=== PATIENT | female | born 1980 | race African-American/Black ===

== ENCOUNTER 2017-08-09 22:21 | Emergency (ER) | payer SELFPAY ==
[2017-08-09] MEDS ORDERED: Ketorolac Tromethamine 30 MG/ML VIAL ONE (23:14)
--- NOTE | 2017-08-09 23:29 | RAD ---
THREE VIEW LEFT WRIST 08/09/17 INDICATION: Left wrist pain and injury related to fall. FINDINGS: No fracture or dislocation identified. Carpal alignment is maintained. IMPRESSION: No acute osseous abnormality of the left wrist. POS: [facility]
--- NOTE | 2017-08-10 07:33 | RAD ---
TWO VIEWS LEFT FOREARM 08/09/17 HISTORY: Fall and now with left forearm deformity. FINDINGS: No fracture or dislocation seen involving the left forearm. No other findings. IMPRESSION: No acute osseous abnormality. POS: [facility]
--- NOTE | 2017-08-10 07:33 | RAD ---
THREE VIEWS LEFT SHOULDER 08/09/17 HISTORY: Left shoulder pain after a fall. COMPARISON: 06/27/15. FINDINGS: There is no fracture dislocation. Distal clavicle appears slightly elevated, but this is a stable fin ding compared to the study in 2015 and is probably within normal limits. The coracoclavicular distanc e is within normal limits. There is no fracture or dislocation involving the left shoulder. IMPRESSION: 1. No acute osseous abnormality. Views of the left shoulder are stable when compared to the prio r study in 2015. 2. No fracture or dislocation. POS: [facility]
--- NOTE | 2017-08-10 07:34 | RAD ---
THREE VIEWS LUMBAR SPINE 08/09/17 HISTORY: Injury after a fall. FINDINGS: There are five nonribbearing lumbar type vertebral bodies. The vertebral body heights and interverteb ral disc spaces are within normal limits. No fracture or subluxation is seen. IMPRESSION: No evidence of a fracture or subluxation involving the lumbar spine. POS: [facility]
== END 2017-08-10 00:05 | disposition home or self-care (01) ==
LOC: ERS 22:21
DX: S63.502A Unspecified sprain of left wrist, initial encounter (principal); I10 Essential (primary) hypertension; F17.210 Nicotine dependence, cigarettes, uncomplicated; M25.511 Pain in right shoulder; M54.6 Pain in thoracic spine; W18.09XA Striking against other object with subsequent fall, initial encounter
CPT/HCPCS: 72100; 96372; J1885

== ENCOUNTER 2018-02-15 08:24 | Emergency (ER) | payer SELFPAY | END 2018-02-15 10:01 | disposition home or self-care (01) | LOC: ERS 08:24 | DX: L03.213 Periorbital cellulitis (principal); H10.9 Unspecified conjunctivitis; I10 Essential (primary) hypertension; F17.210 Nicotine dependence, cigarettes, uncomplicated | CPT/HCPCS: 99283 ==

== ENCOUNTER 2018-11-26 14:10 | Emergency (ER) | payer SELFPAY ==
[2018-11-26] MEDS ORDERED: Albuterol Sulfate 2.5 mg/3 ml Neb ONE (14:29)
[2018-11-26] MEDS ORDERED: Albuterol Sulfate 2.5 mg/0.5 ml Neb ONE (14:29)
[2018-11-26] MEDS ORDERED: Magnesium 2 GM/50 ML BAG (IN WATER) ONE (14:33)
[2018-11-26] MEDS ORDERED: methylPREDNISolone Sod Succ/PF 125 MG/2 ML VIAL ONE (14:33)
[2018-11-26] MEDS ORDERED: Dexamethasone 10 MG/ML VIAL ONE (14:47)
--- NOTE | 2018-11-26 14:59 | RAD ---
CHEST 1 VIEW: Date: 11/26/18 HISTORY: Dyspnea. COMPARISON: 09/30/15. FINDINGS: Heart size is normal. The lungs are clear. IMPRESSION: No acute intrathoracic disease. POS: [facility]
== END 2018-11-26 16:01 | disposition home or self-care (01) ==
LOC: ERS 14:10
DX: J45.901 Unspecified asthma with (acute) exacerbation (principal); I10 Essential (primary) hypertension; F17.210 Nicotine dependence, cigarettes, uncomplicated
CPT/HCPCS: 71045; 94640; 94644; 96365; 96375; J1100; J2930; J3475; J7611; J7620

== ENCOUNTER 2019-07-30 23:52 | Emergency (ER) | payer SELFPAY | END 2019-07-31 00:54 | disposition home or self-care (01) | LOC: ERS 23:52 | DX: J11.1 Influenza due to unidentified influenza virus with other respiratory manifestations (principal); I10 Essential (primary) hypertension; F17.210 Nicotine dependence, cigarettes, uncomplicated | CPT/HCPCS: 87804; 99283 ==

== ENCOUNTER 2021-05-24 17:27 | Emergency (ER) | payer SELFPAY ==
[2021-05-24] MEDS ORDERED: Acetaminophen 500 MG TAB ONE (18:40)
== END 2021-05-24 19:41 | disposition home or self-care (01) ==
LOC: ERS 17:27
DX: S93.402A Sprain of unspecified ligament of left ankle, initial encounter (principal); S93.602A Unspecified sprain of left foot, initial encounter; W18.42XA Slipping, tripping and stumbling without falling due to stepping into hole or opening, initial encounter; I10 Essential (primary) hypertension; J45.909 Unspecified asthma, uncomplicated; F17.210 Nicotine dependence, cigarettes, uncomplicated

== ENCOUNTER 2021-11-24 13:10 | Emergency (ER) | payer OTHER, SELFPAY | END 2021-11-24 15:05 | disposition home or self-care (01) | LOC: ERS 13:10 | DX: S39.012A Strain of muscle, fascia and tendon of lower back, initial encounter (principal); I10 Essential (primary) hypertension; F17.210 Nicotine dependence, cigarettes, uncomplicated; X50.9XXA Other and unspecified overexertion or strenuous movements or postures, initial encounter; Y92.79 Other farm location as the place of occurrence of the external cause | CPT/HCPCS: 99283 ==

== ENCOUNTER 2022-05-04 20:29 | Emergency (ER) | payer SELFPAY ==
[2022-05-05 00:03] LABS: #Basophils 0.1 thou/uL (0.0-0.2); #Eosinphils 0.1 thou/uL (0.0-0.7); #Lymphocytes 3.1 thou/uL (1.20-3.40); #Monocytes 0.8 thou/uL (0.11-0.59); #Neutrophils 4.8 thou/uL (1.40-6.50); %Basophils 0.6 % (0.0-1.0); %Eosinophils 1.2 % (0.0-10.0); %Monocytes 8.4 % (0.0-10.0); %Neutrophils 54.8 % (42.0-75.0); Hemoglobin 13.9 g/dL (12.0-16.0); Mean Corpuscular HGB CONC 33.5 g/dL (32.0-36.0); Mean Corpuscular Hemoglobin 34.5 pg (27.0-31.0); Mean Platelet Volume 8.1 fL (7.4-10.4); Platelet Count 335 thou/uL (130-400); RBC Distribution Width 12.2 % (11.5-14.5); Red Blood Cell (RBC) Count 4.02 mill/uL (4.20-5.40); White Blood Cell (WBC) Count 8.8 thou/uL (4.8-10.8)
[2022-05-05 00:24] LABS: BHCG - Serum Negative (NEGATIVE)
[2022-05-05 00:25] LABS: Pregs Control Background? CLEAR/WHITE (CLR/WHITE); Pregs Control Bar Appear? YES (CONTROL BAR)
[2022-05-05 00:33] LABS: ALT (SGPT) 13 U/L (8-55); AST (SGOT) 15 U/L (5-34); Alkaline Phosphatase 70 U/L (40-110); Anion Gap 12 mmol/L (10-20); BUN (Urea Nitrogen) 9 mg/dL (7.0-18.7); Bilirubin, Total 0.3 mg/dL (0.2-1.2); Calc. Creatinine Clearance 0 mL/min (70-130); Calcium 8.8 mg/dL (7.8-10.44); Carbon Dioxide 23 mmol/L (22-29); Chloride 107 mmol/L (98-107); Estimated GFR 100; Globulin 3.1 g/dL (2.4-3.5); Glucose 88 mg/dL (70-105); Magnesium 1.8 mg/dL (1.6-2.6); Potassium 3.7 mmol/L (3.5-5.1); Protein, Total 7.1 g/dL (6.0-8.3); Sodium 138 mmol/L (136-145)
== END 2022-05-05 01:30 | disposition home or self-care (01) ==
LOC: ERS 20:29
DX: R42 Dizziness and giddiness (principal); R53.1 Weakness; R53.83 Other fatigue; I10 Essential (primary) hypertension; F17.210 Nicotine dependence, cigarettes, uncomplicated
CPT/HCPCS: 36415; 71045; 80053; 83735; 84443; 84484; 84703; 85025; 93005

== ENCOUNTER 2022-08-04 00:23 | Emergency (ER) | payer SELFPAY ==
[2022-08-04] MEDS ORDERED: Ketorolac Tromethamine 30 MG/ML VIAL ONE (02:04)
[2022-08-04] MEDS ORDERED: Metoclopramide HCl 10 MG/2 ML VIAL ONE (02:04)
[2022-08-04] MEDS ORDERED: diphenhydrAMINE 50 MG/ML VIAL ONE (02:04)
== END 2022-08-04 03:50 | disposition home or self-care (01) ==
LOC: ERS 00:23
DX: R51.9 Headache, unspecified (principal); I10 Essential (primary) hypertension; F17.210 Nicotine dependence, cigarettes, uncomplicated
CPT/HCPCS: 96374; 96375; J1200; J1885; J2765

== ENCOUNTER 2023-07-26 14:36 | Emergency (ER) | payer SELFPAY ==
[2023-07-26] MEDS ORDERED: Ibuprofen 200 MG TAB ONE (15:58)
[2023-07-26] MEDS ORDERED: Acetaminophen 500 MG TAB ONE (15:58)
[2023-07-26 16:05] LABS: Bilirubin Negative (Negative); Blood, Urine Negative (Negative); CAUTI Indications for Culture Dysuria,urgency,freq; Clarity Clear (Clear); Glucose, Urine (Dipstick) Normal (Negative); Ketone, Urine Negative (Negative); Leukocyte Negative Leu/uL (Negative); Nitrite Negative (Negative); Protein, Urine (Dipstick) Negative (Neg-Trace); RBC/HPF 0-3 HPF (0-3); Specific Gravity, Urine 1.016 (1.002-1.036); Squamous Epithelial 0-3 HPF (0-3); Urobilinogen Normal mg/dL (Less than 2); WBC/HPF 0-3 HPF (0-3); pH, Urine 6.5 (5.0-9.0)
[2023-07-26 16:22] LABS: Bacteria/HPF 1+ HPF (None Seen)
[2023-07-26 16:23] LABS: Urine Culture Reflex No No
[2023-07-26 16:37] LABS: Pregnancy Test - Urine (BHCG) Negative (Negative); Pregu Control Background? CLEAR/WHITE (CLR/WHITE); Pregu Control Bar Appear? YES (CONTROL BAR); Specific Gravity 1.016 (1.002-1.036)
[2023-07-27 05:09] LABS: Chlamydia by PCR, Vaginal Swab Not Detected (NotDetected); GC by PCR, Vaginal Swab Not Detected (NotDetected)
== END 2023-07-26 18:14 | disposition home or self-care (01) ==
LOC: ERS 14:36
DX: R82.71 Bacteriuria (principal); R35.0 Frequency of micturition; F17.210 Nicotine dependence, cigarettes, uncomplicated; I10 Essential (primary) hypertension
CPT/HCPCS: 81001; 81025; 87480; 87491; 87510; 87591; 87660; 99283

== ENCOUNTER 2023-08-27 08:27 | Emergency (ER) | payer SELFPAY ==
[2023-08-27] MEDS ORDERED: Ketorolac Tromethamine 30 MG (1 mL) VIAL ONE (09:02)
[2023-08-27] MEDS ORDERED: Dexamethasone 4 mg/ml Vial ONE (09:02)
[2023-08-27 09:32] LABS: SARS-CoV-2 NAA Rapid Test Not Detected (NotDetected)
== END 2023-08-27 10:00 | disposition home or self-care (01) ==
LOC: ERS 08:27
DX: J02.9 Acute pharyngitis, unspecified (principal); I10 Essential (primary) hypertension; F17.210 Nicotine dependence, cigarettes, uncomplicated
CPT/HCPCS: 87081; 87430; 96372; 99283; J1100; J1885

== ENCOUNTER 2024-02-02 09:26 | Emergency (ER) | payer SELFPAY ==
[2024-02-02] MEDS ORDERED: Ketorolac Tromethamine 30 MG (1 mL) VIAL ONE ×2 (10:21→10:22)
[2024-02-02] MEDS ORDERED: Lidocaine 2% PF 5 ML VIAL ONE (10:33)
[2024-02-02] MEDS ORDERED: Morphine 4 MG/ML VIAL ONE (10:40)
[2024-02-02] MEDS ORDERED: Ondansetron ODT 4 MG TAB ONE (10:41)
[2024-02-02] MEDS ORDERED: Lidocaine Viscous Sol 2% 15 ml UD Cup FS SCH (10:45)
== END 2024-02-02 12:29 | disposition home or self-care (01) ==
LOC: ERS 09:26
DX: K04.7 Periapical abscess without sinus (principal); M27.2 Inflammatory conditions of jaws; I10 Essential (primary) hypertension; F17.210 Nicotine dependence, cigarettes, uncomplicated
CPT/HCPCS: 42000; 96372; J1885; J2001; J2270; Q0162

== ENCOUNTER 2025-03-20 21:38 | Emergency (ER) | payer SELFPAY ==
[2025-03-20 22:46] LABS: Hematocrit 38.6 % (36.0-47.0); Hemoglobin 12.5 g/dL (12.0-16.0); Mean Corpuscular Hemoglobin 31.0 pg (27.0-31.0); Mean Corpuscular Volume 95.8 fL (78.0-98.0); Platelet Count 409 10x3/uL (130-400); Red Blood Cell (RBC) Count 4.03 mill/uL (4.20-5.40); White Blood Cell (WBC) Count 8.63 10x3/uL (4.8-10.8)
[2025-03-20 22:52] LABS: Bacteria/HPF 3+ HPF (None Seen); CAUTI Indications for Culture Pelvic or flank pain; Glucose, Urine (Dipstick) Normal (Negative); Leukocyte 75 Leu/uL (Negative); Protein, Urine (Dipstick) 10 mg/dL (Neg-Trace); RBC/HPF 0-3 HPF (0-3); Specific Gravity, Urine 1.033 (1.002-1.036)
[2025-03-20 22:53] LABS: INR-International Normal Ratio 1.0; PTT 32.5 sec (22.9-36.1); Prothrombin Time 13.7 sec (12.0-14.7)
[2025-03-20 22:56] LABS: Urine Culture Reflex No No
[2025-03-20 22:59] LABS: ALT (SGPT) 11 U/L (Less than 34); AST (SGOT) 20 U/L (11-34); Albumin 3.5 g/dL (3.1-4.5); Alkaline Phosphatase 78 U/L (40-110); Anion Gap 12 mmol/L (10-20); BUN (Urea Nitrogen) 6 mg/dL (7.0-18.7); Bilirubin, Total 0.1 mg/dL (0.3-1.2); Calc. Creatinine Clearance 0 mL/min (70-130); Calcium 8.5 mg/dL (7.8-10.44); Carbon Dioxide 21 mmol/L (22-29); Chloride 111 mmol/L (98-107); Globulin 3.4 g/dL (2.4-3.5); Glucose 106 mg/dL (70-105); Potassium 3.8 mmol/L (3.5-5.1); Sodium 140 mmol/L (136-145)
[2025-03-20 23:03] LABS: BHCG - Serum Negative (NEGATIVE); Pregs Control Background? CLEAR/WHITE (CLR/WHITE); Pregs Control Bar Appear? YES (CONTROL BAR)
[2025-03-20] MEDS ORDERED: Ketorolac Tromethamine 30 MG (1 mL) VIAL ONE (23:09)
[2025-03-20 23:10] LABS: Anisocytosis SLIGHT = 6-15 cells HPF (0-5); Platelet Adequacy Comment Platelets Increased; Polychromasia SLIGHT = 2-3 cells HPF (0-2); Smudge Cells 10.0 %
== END 2025-03-21 02:58 | disposition home or self-care (01) ==
LOC: ERS 21:38
DX: N39.0 Urinary tract infection, site not specified (principal); N92.0 Excessive and frequent menstruation with regular cycle; I10 Essential (primary) hypertension; F17.210 Nicotine dependence, cigarettes, uncomplicated
CPT/HCPCS: 74176; 80053; 81001; 84703; 85025; 85610; 85730; 86850; 86900; 86901; 96374; J1885